=== PATIENT | female | born 1960 | race Caucasian/White ===

== ENCOUNTER 2022-03-09 12:19 | Emergency (ER) | payer OTHER ==
[2022-03-09 13:06] VITALS: BP 146/78; PULSE 65; RESP 16; TEMP 98.1; BMI 30.2
[2022-03-09] MEDS ORDERED: DIPHTH,PERTUSS(ACELL),TET 0.5 ML DISP.SYRIN IM ONE ×2 (13:50→14:05)
== END 2022-03-09 16:21 | disposition home or self-care (01) ==
LOC: JERFT 12:19 → JER 12:19 → JERFT 16:21
PROC: 3E0234Z Introduction of Serum, Toxoid and Vaccine into Muscle, Percutaneous Approach (ICD-10-PCS; principal; 2022-03-09)
DX: S09.93XA Unspecified injury of face, initial encounter (principal); W19.XXXA Unspecified fall, initial encounter
CPT/HCPCS: 70450-TC; 70486-TC; 73130-TC-LT-FY; 73140-TC-RT-FY; 73564-TC-RT-FY; 90471; 90715; 99284-25